=== PATIENT | male | born 1950 | race Caucasian/White ===

== ENCOUNTER 2021-07-23 08:52 | Observation (INO) ==
--- NOTE | 2021-07-23 09:23 | Emergency Department Note ---
Impression & Plan Acute retention of urine, Hypertension, Hematuria, Anemia ED Provider Note NAME: CORNELIO RAYGOZA AGE: 70 SEX: M : 1950 ARRIVES VIA: Walk-In INFORMANT: Patient ED PROVIDER(S): Brandon Chi DO CHIEF COMPLAINT: Hematuria HPI: Patient is a 70-year-old male with recent TURP performed 5 weeks ago in [facility]. He started bleeding this past Monday intermittently. He came in last night as his Edward was not emptying and he was having blood clots. This morning he has more of the same symptoms. He notes the Edward has not really been emptied since 12:00 last night. He has been taking his Eliquis. He was recently treated for UTI and prescribed antibiotics on the past visit which included cefdinir. He is still taking his apixaban. No headache or change in vision. No chest pain or shortness of breath. No nausea, vomiting, or diarrhea. No other exacerbating or remitting factors. ROS: See above HPI for pertinent positives & negatives. A total of 10 systems reviewed and were otherwise negative. PAST MEDICAL HISTORY:See Below PAST SURGICAL HISTORY:See Below FAMILY HISTORY:See Below SOCIAL HISTORY:See Below HOME MEDICATIONS:See Below ALLERGIES:See Below VITALS:See Below PHYSICAL EXAMINATION: GENERAL: Sitting up in bed, alert, well appearing, well nourished, no distress, non-toxic EYE EXAM: normal conjunctiva. OROPHARYNX: no exudate, no erythema, lips, buccal mucosa, and tongue normal and mucous membranes are moist NECK: supple, no nuchal rigidity, no adenopathy, non-tender LUNGS: Clear to auscultation. Normal chest wall mechanics HEART: no murmurs, S1 normal and S2 normal ABDOMEN: abdomen soft, non-tender, normo-active bowel sounds, no masses, no rebound or guarding. : edward in place with an empty bag UPPER EXTREMITIES: upper extremities are grossly normal. LOWER EXTREMITIES: No pitting edema. NEURO EXAM: Normal sensorium, cranial nerves II-XII grossly intact, normal speech, no gross weakness of arms, no gross weakness of legs. MEDICAL DECISION MAKING: Patient is a 70-year-old male presents the ER for a blocked off Edward catheter. He was here about 24 hours ago for the same symptoms. He has been taking his Eliquis. He had a TURP performed about 5 weeks ago. He has been unable to urinate/after the Edward since last night around 12. Edward was irrigated and started draining gross blood. Was given a gram of Rocephin secondary to the urine yesterday as he did not fill the Omnicef. Hemoglobin went from 11-9.1. With the 2 g drop in 24 hours to discuss with the hospitalist as well as Dr. Aviles from urology and agreed. Creatinine was 1.8 up from 1.5. LFTs were unremarkable. Covid was negative. Ultrasound does show Edward in the bladder was performed by myself at bedside with what appears to be a clot. After discussion with urology recommended a three-way which was ordered and continuous bladder irrigation. Discussed with the hospitalist for further evaluation. Triage Nursing notes reviewed. Limited review of prior medical records performed Vital Signs: reviewed and remarkable for HTN Differential diagnosis: Differential diagnoses includes but is not limited to gastritis, peptic ulcer disease, GERD, gallbladder disease, pancreatitis, small bowel obstruction, acute coronary syndrome, pericarditis, ischemic bowel, irritable bowel disease, irritable bowel syndrome, appendicitis, diverticulitis, malignancy, hernia, urinary tract infection, torsion, /ectopic (if female), perforation, trauma, infectious. ER treatment provided: See below Diagnostics interpreted by me: ECG: none Laboratory studies: As stated above and show below. Imaging studies: See below Consultation(s): Discussed with peds from urology as stated above Discussed with Dr. Dillon Taylor for admission Procedures: none Critical Care: None Past Med/Surg History Medical History (Updated 07/23/21 @ 13:30 by Brandon Chi DO) Benign prostatic hyperplasia Hyperlipidemia Hypertension Paroxysmal atrial fibrillation Type 2 diabetes mellitus Surgical History (Updated 07/23/21 @ 11:39 by Dillon Taylor MD) History of cholecystectomy History of transurethral resection of prostate Social History Smoking Status: Never smoker Preferred Language: Frisian Feels Safe at Home: Yes Allergies Allergies Allergy/AdvReac Type Severity Reaction Status Date / Time No Known Allergies Allergy Verified 07/23/21 10:36 Home Meds Home Medications Medication Instructions Recorded Confirmed amlodipine 5 mg tablet 5 mg PO QPM 07/22/21 07/23/21 apixaban 5 mg tablet (Eliquis) 5 mg PO BID 07/22/21 07/23/21 aspirin 81 mg tablet,delayed 81 mg PO QAM 07/22/21 07/23/21 release empagliflozin 25 mg tablet 12.5 mg PO QAM 07/22/21 07/23/21 glucose 4 gram chewable tablet 16 g PO DIRECTED PRN 07/22/21 07/23/21 lisinopril 40 mg tablet 40 mg PO QAM 07/22/21 07/23/21 metformin 1,000 mg tablet 1,000 mg PO BID 07/22/21 07/23/21 odmafwbo-txr-btxir acid 300 1 tab PO QAM 07/22/21 07/23/21 mcg-lycopene 600 mcg-lutein 300 mcg tablet (Centrum Silver Men) pioglitazone 45 mg tablet 45 mg PO QAM 07/22/21 07/23/21 pravastatin 80 mg tablet 80 mg PO QPM 07/22/21 07/23/21 sotalol 80 mg tablet 40 mg PO BID 07/22/21 07/23/21 tamsulosin 0.4 mg capsule 0.4 mg PO QPM 07/22/21 07/23/21 phenazopyridine 200 mg tablet 200 mg PO TID 07/23/21 07/23/21 Previous Rx's Medication Instructions Recorded cefdinir 300 mg capsule 300 mg PO BID #14 cap 07/22/21 Results & Data (ED) Vital Signs Vital Signs - 24 hr 07/23/21 08:57 07/23/21 09:17 07/23/21 10:32 Temperature 36.7 C Temperature Source Temporal Artery Scan Oral Pulse Rate 86 Pulse Rate [Left] Pulse Rhythm [Left] Pulse Strength [Left] Respiratory Rate 20 Respiratory Effort / Characteristics Non-Labored Spontaneous Respiratory Depth Normal Respiratory Pattern Regular Blood Pressure 144/76 H Blood Pressure [Left Arm] Blood Pressure Mean 98 Blood Pressure Mean [Left Arm] Blood Pressure Position [Left Arm] Pulse Oximetry 98 Oxygen Delivery Method Room Air Room Air Sepsis Recent Fever Within 48 Hours No Sepsis New/Unexplained Change in Mental Status No Sepsis Action Taken by Nursing No Action Required 07/23/21 11:00 Temperature Temperature Source Pulse Rate Pulse Rate [Left] 69 Pulse Rhythm [Left] Regular Pulse Strength [Left] Normal Respiratory Rate 16 Respiratory Effort / Characteristics Non-Labored Respiratory Depth Normal Respiratory Pattern Blood Pressure Blood Pressure [Left Arm] 123/75 Blood Pressure Mean Blood Pressure Mean [Left Arm] 91 Blood Pressure Position [Left Arm] Sitting Pulse Oximetry 97 Oxygen Delivery Method Room Air Sepsis Recent Fever Within 48 Hours Sepsis New/Unexplained Change in Mental Status Sepsis Action Taken by Nursing Laboratory Data Result diagrams: 07/23/21 09:20 07/23/21 09:20 Lab Results 07/23/21 07/23/21 07/23/21 Range/Units 09:20 09:20 10:30 WBC 7.54 (4.8-10.8) K/uL RBC 3.09 L (4.7-6.1) M/uL Hgb 9.1 L (14.0-18.0) g/dL Hct 28.0 L (42-52) % MCV 90.6 (80-100) fL MCH 29.4 (25-34) pg MCHC 32.5 (32-36) g/dL RDW Std Deviation 46.2 (36.4-46.3) fL RDW Coeff of Paul 14.0 (11.5-14.5) % Plt Count 178 (130-400) K/uL MPV 9.1 (7.4-10.4) fL Immature Gran % (Auto) 0.3 % Neut % (Auto) 56.6 % Lymph % (Auto) 28.1 % [place] % (Auto) 12.6 % Eos % (Auto) 2.0 % Baso % (Auto) 0.4 % Neut # (Auto) 4.27 (1.4-6.5) K/uL Lymph # (Auto) 2.12 (1.2-3.4) K/uL [place] # (Auto) 0.95 H (0.11-0.59) K/uL Eos # (Auto) 0.15 (0-0.5) K/uL Baso # (Auto) 0.03 (0-0.2) K/uL Immature Gran # (Auto) 0.02 (0.00-0.02) K/uL Sodium 138 (136-145) mmol/L Potassium 3.9 (3.5-5.1) mmol/L Chloride 108 H (98-107) mmol/L Carbon Dioxide 26 (21-32) mmol/L Anion Gap 4.0 (3-11) BUN 40 H (7-18) mg/dl Creatinine 1.89 H D (0.6-1.4) mg/dl Est Cr Clr Drug Dosing 39.9 ml/min Est GFR ( Amer) 40.2 ml/min Est GFR (Non-Af Amer) 34.7 ml/min BUN/Creatinine Ratio 21.0 H (10-20) Glucose 165 H (70-99) mg/dl Calcium 9.2 (8.5-10.1) mg/dl Total Bilirubin 0.6 (0.2-1) mg/dl AST 11 L (15-37) U/L ALT 19 (12-78) U/L Alkaline Phosphatase 62 (45-117) U/L Total Protein 7.5 (6.4-8.2) gm/dl Albumin 3.2 L (3.4-5.0) gm/dl Globulin 4.3 H (2.5-4.0) gm/dl Albumin/Globulin Ratio 0.7 L (0.9-2) SARS-CoV-2, RNA, NAAT NEGATIVE (NEGATIVE) Administered Medications Discontinued Medications Ceftriaxone Sodium (Rocephin) 1,000 mg in 50 mls @ 100 mls/hr IV NOW STA Stop: 07/23/21 10:54 Last Admin: 07/23/21 11:05 Dose: 100 mls/hr Documented by: [id number] Discharge Plan Visit Data Chief Complaint: Catheter Replacement Stated Complaint: BLOCKED CATHERTER ED Provider: Brandon Chi Discharge Problem: Acute retention of urine, Hypertension, Hematuria, Anemia Discharge Problem: Hypertension Qualifiers: Hypertension type: unspecified Qualified Code(s): I10 - Essential (primary) hypertension Hematuria Qualifiers: Hematuria type: unspecified type Qualified Code(s): R31.9 - Hematuria, unspecified Anemia Qualifiers: Anemia type: unspecified type Qualified Code(s): D64.9 - Anemia, unspecified
[2021-07-23 09:32] LABS: Basophils # (auto) 0.03 K/uL (0-0.2); Basophils % (auto) 0.4 %; Eosinophils # (auto) 0.15 K/uL (0-0.5); Hemoglobin 9.1 g/dL (14.0-18.0); Immature Granulocytes # (auto) 0.02 K/uL (0.00-0.02); Immature Granulocytes % (auto) 0.3 %; Lymphocytes # (auto) 2.12 K/uL (1.2-3.4); Lymphocytes % (auto) 28.1 %; Mean Corpuscular Hemoglobin 29.4 pg (25-34); Mean Corpuscular Hgb Conc 32.5 g/dL (32-36); Mean Corpuscular Volume 90.6 fL (80-100); Mean Platelet Volume 9.1 fL (7.4-10.4); Monocytes # (auto) 0.95 K/uL (0.11-0.59); Monocytes % (auto) 12.6 %; Neutrophils # (auto) 4.27 K/uL (1.4-6.5); Neutrophils % (auto) 56.6 %; Platelet Count 178 K/uL (130-400); RDW Standard Deviation 46.2 fL (36.4-46.3); Red Blood Count 3.09 M/uL (4.7-6.1); White Blood Count 7.54 K/uL (4.8-10.8)
[2021-07-23] MEDS ORDERED: cefTRIAXone SODIUM 1,000 MG/50 ML BAG IV STA (10:25)
--- NOTE | 2021-07-23 10:37 | History & Physical Report ---
Date of Service July 23, 2021 Assessment & Plan (1) Hematuria: Plan: Agree with continuing ceftriaxone for antibiotic coverage. No bacteria seen on UA from yesterday however nitrites positive and higher risk on Jardiance and recent urological procedure. Hold aspirin and Eliquis - no urgent need to restart either of these. No indication to go back on aspirin regardless. Consult urology (2) Acute retention of urine: Plan: Catheter inserted for CBI per urology recommendations (3) Paroxysmal atrial fibrillation: Plan: Holding Eliquis as above. Currently in NSR. No known a. fib for 6 years. Continue sotalol (4) Benign prostatic hyperplasia: Plan: Continue tamsulosin 0.4mg HS Catheter management per urology recommendations (5) Type 2 diabetes mellitus: Plan: Unknown HbA1C Hold his usual metformin and pioglitazone. Recommend discontinuing Jardiance on discharge Novolog: Goal BSG Range: Low 110 mg/dL, High 140 mg/dL Correction Factor: 45 mg/dL/unit Carbohydrate ratio = 15 g/unit BSGs ACHS if eating, q6h if npo (6) Hyperlipidemia: Plan: Continue pravastatin 80mg PO daily (7) Hypertension: Plan: Continue lisinopril and amlodipine with hold parameters Plan: VTE Prophylaxis - chemical contraindicated, low risk Diet - T2DM, heart healthy Disposition - observation status to med/surg Admission and Anticipated Discharge Date Admission Date: July 23, 2021 History of Present Illness Chief Complaint: Gross hematuria Primary Care Provider: NO PCP Eric Sullivan is a 70 year old male who presents to the ER with gross hematuria. He has a recent history of TURP (for benign prostatic hypertrophy) on Jun 17, 2021. Edward catheter was removed a day after the procedure and he had mild bleeding intermittently for 1.5 weeks but no clots. He was started on Jardiance 1.5 weeks ago. He is here visiting family in the area for the holidays. Hematuria recurred on this past Monday. Much worse on Monday with intermittent urinary retention and clots. No fever, chills, dysuria, abdominal pain, flank pain, nausea or vomiting, change in bowels, melena or bright red blood in stool. He was seen in the ER for this yesterday and edward catheter was inserted and he was started on antibiotics. However due to clots causing urine retention in the catheter he returns today. He was kept on aspirin and Eliquis however he didn't take his Eliquis this morning. He has continued to take Eliquis and aspirin throughout. However denies any prior heart attack of stroke. Paroxysmal atrial fibrillation - picked up incidentally at cardiology appointment 6 years ago. Treated with sotalol and cardioversion. On Eliquis since then (off 2 days prior and started 2 days later). In the ER hemoglobin decreased from 11.0 to 9.1. He was referred to medicine for admission and ongoing management of hematuria. Allergies Allergy/AdvReac Type Severity Reaction Status Date / Time No Known Allergies Allergy Verified 07/23/21 10:36 Home Medications Medication Instructions Recorded Confirmed Type amlodipine 5 mg tablet 5 mg PO QPM 07/22/21 07/23/21 History apixaban 5 mg tablet (Eliquis) 5 mg PO BID 07/22/21 07/23/21 History aspirin 81 mg tablet,delayed 81 mg PO QAM 07/22/21 07/23/21 History release cefdinir 300 mg capsule 300 mg PO BID #14 cap 07/22/21 07/23/21 Rx empagliflozin 25 mg tablet 12.5 mg PO QAM 07/22/21 07/23/21 History glucose 4 gram chewable tablet 16 g PO DIRECTED PRN 07/22/21 07/23/21 History lisinopril 40 mg tablet 40 mg PO QAM 07/22/21 07/23/21 History metformin 1,000 mg tablet 1,000 mg PO BID 07/22/21 07/23/21 History sqkhpqhi-dfb-nbisd acid 300 1 tab PO QAM 07/22/21 07/23/21 History mcg-lycopene 600 mcg-lutein [facility]cg tablet [facility]) pioglitazone 45 mg tablet 45 mg PO QAM 07/22/21 07/23/21 History pravastatin 80 mg tablet 80 mg PO QPM 07/22/21 07/23/21 History sotalol 80 mg tablet 40 mg PO BID 07/22/21 07/23/21 History tamsulosin 0.4 mg capsule 0.4 mg PO QPM 07/22/21 07/23/21 History phenazopyridine 200 mg tablet 200 mg PO TID 07/23/21 07/23/21 History Past Med/Surg History Medical History Benign prostatic hyperplasia Hyperlipidemia Hypertension Paroxysmal atrial fibrillation Type 2 diabetes mellitus Surgical History History of cholecystectomy History of transurethral resection of prostate Social History Smoking Status: Never smoker Hx Alcohol Use: No Hx Substance Use: No Preferred Language: Kyrgyz Communication Ability: Effective Shock Absorption Floor Layer Required: No Beliefs That Will Affect Care: None Current Living Situation: Spouse Feels Safe at Home: Yes Assistive Devices: Glasses Review of Systems Review of Systems: All systems reviewed & are unremarkable except as noted in HPI & below Physical Exam Constitutional: WD/WN, vitals as above Eyes: + anicteric sclerae; normal pupil size ENMT: external ear and nose normal, oropharynx normal Respiratory: normal respiratory effort, lungs clear to auscultation Cardiovascular: RRR, no murmur, no edema Gastrointestinal (Abdomen): normal bowel sounds, soft, nontender, no hepatosplenomegaly Musculoskeletal: no cyanosis or clubbing, extremities motor strength 5/5 Skin: no rashes, warm and dry Neurologic: moves all extremities and awake; not confused Psychiatric: A+Ox3, euthymic affect Genitourinary: no CVA tenderness Edward catheter draining ping blood Results & Data Results & Data ([facility]) Vital Signs (Past 12 Hours) Vital Signs Temp Pulse Resp BP Pulse Ox 07/23/21 08:57 36.7 C 86 20 144/76 H 98 Laboratory Results Abnormal lab results 07/23/21 07/23/21 07/23/21 Range/Units 09:20 09:20 17:22 RBC 3.09 L (4.7-6.1) M/uL Hgb 9.1 L (14.0-18.0) g/dL Hct 28.0 L (42-52) % [place] # (Auto) 0.95 H (0.11-0.59) K/uL Chloride 108 H (98-107) mmol/L BUN 40 H (7-18) mg/dl Creatinine 1.89 H D (0.6-1.4) mg/dl BUN/Creatinine Ratio 21.0 H (10-20) Glucose 165 H (70-99) mg/dl POC Glucose 137 H (70-99) mg/dl AST 11 L (15-37) U/L Albumin 3.2 L (3.4-5.0) gm/dl Globulin 4.3 H (2.5-4.0) gm/dl Albumin/Globulin Ratio 0.7 L (0.9-2) 07/23/21 07/23/21 Range/Units 17:39 20:47 RBC (4.7-6.1) M/uL Hgb 9.3 L (14.0-18.0) g/dL Hct 28.0 L (42-52) % [place] # (Auto) (0.11-0.59) K/uL Chloride (98-107) mmol/L BUN (7-18) mg/dl Creatinine (0.6-1.4) mg/dl BUN/Creatinine Ratio (10-20) Glucose (70-99) mg/dl POC Glucose 104 H (70-99) mg/dl AST (15-37) U/L Albumin (3.4-5.0) gm/dl Globulin (2.5-4.0) gm/dl Albumin/Globulin Ratio (0.9-2) Medications Administered ER Medications Given: Ceftriaxone 1000mg IV daily Code Status & VTE Plan Code Status Full VTE Prophylaxis Plan VTE Prophylaxis will be ordered: No PG Care Time/CCT Total # of Minutes Spent Total Time Spent with Patient: Total time spent is greater than 50% in coordination of care (as documented) at patient's floor/unit and/or counseling patient: Coding Level of Care Code INT OBSERVATION CARE 70M LVL 3 Diagnoses Acute retention of urine R33.8 Hematuria R31.0 Hematuria type: gross Paroxysmal atrial fibrillation I48.0 Benign prostatic hyperplasia N40.0 Type 2 diabetes mellitus E11.9 Hyperlipidemia E78.5 Hypertension I10 (1) Hematuria Hematuria type: gross Qualified Code(s): R31.0 - Gross hematuria
[2021-07-23 10:39] LABS: Albumin Level 3.2 gm/dl (3.4-5.0); Calcium 9.2 mg/dl (8.5-10.1); Creatinine Clr Calc Pharmacy 39.9 ml/min; Est GFR (African American) 40.2 ml/min; Est GFR (Non-African American) 34.7 ml/min; Potassium 3.9 mmol/L (3.5-5.1)
[2021-07-23 10:42] LABS: Albumin Globulin Ratio 0.7 (0.9-2); Bilirubin,Total 0.6 mg/dl (0.2-1); Globulin 4.3 gm/dl (2.5-4.0); Total Protein 7.5 gm/dl (6.4-8.2)
--- NOTE | 2021-07-23 14:09 | Urology Consultation ---
Date of Consultation July 23, 2021 Assessment & Plan (1) Anemia: (2) Hematuria: Hematuria is likely multifactorial in nature. His recent TURP is left his prostate with a raw surface, which could bleed with straining or heavy lifting. His anticoagulation with Eliquis puts him at higher risk. There is a chance that he has a superimposed urinary tract infection, and it would be reasonable to treat empirically. Bleeding appears to be resolved at this point. (3) Acute retention of urine: 70-year-old male with urinary retention related to clots and hematuria. At this point his bladder is draining well on continuous bladder irrigation. W hen this is slowed, there is no evidence of active bleeding, as the urine stays clear. I suspect his bleeding all happened a couple days ago, and he is dealing with sequelae of clots in the bladder which have been largely flushed out. I suspect his anemia is partially related to the recent bleed, but for the most part is dilutional. He remains asymptomatic and I do not think he requires any intervention or transfusion at this point. I suspect his acute kidney injury is related to lower urinary tract obstruction. As his bladder continues to drain with the current catheter, this should impr ove. Recommendations: Continue CBI overnight, wean as tolerated, okay to perform hand irrigation if catheter because clotted off. Okay to have diet Continue antibiotics, would recommend 5-day course -can tailor if urine culture shows any growth. Urology will follow along History of Present Illness Attending Physician: Dillon Taylor MD History of Present Illness This is a 70 yo male who presented to the ED on 07/23/2021 with urinary retention. He had undergone a TURP at an outside urology office approximately 5-6 weeks prior to presentation. The procedure went without any problems and he was discharged home without a catheter. He had minimal blood in the urine afterwards. Earlier this week he reports having some blood in the urine, but was still voiding well. There was no obvious inciting factor. He denies heavy lifting or straining. He is on Eliquis for A.fib. The urine got more bloody on 07/20, and he was having some clots. He was able to pass some of these with straining, but had overall worsening urinary retention. This eventually prompted him to present to the emergency department. At that time a Ralph catheter was placed, irrigation was performed for some clots and he was sent home. His catheter again became clogged and he returned to the ED on 07/23/2021. Bedside ultrasound demonstrated some intraluminal clots within the bladder. Hand irrigation was again performed, but the urine was still red. His catheter was exchanged to a 22 Thai three-way and continuous bladder irrigation was initiated. Urology was consulted for further evaluation. Additionally, he was noted on lab work to have dropped his hemoglobin by 2 points, and was admitted to the hospitalist for further monitoring. At the bedside today, he denies any significant pain. He reports the current catheter is draining well. He denies any lightheadedness, nausea or vomiting. Labs reviewed: CBC with hemoglobin from 11.0 --> 9.1 (07/22-07/23) no leukocytosis BMP (07/23/2021): Notable for creatinine of 1.89, up from previous value 1.52. Allergies Allergy/AdvReac Type Severity Reaction Status Date / Time No Known Allergies Allergy Verified 07/23/21 10:36 Home Medications Medication Instructions Recorded Confirmed Type amlodipine 5 mg tablet 5 mg PO QPM 07/22/21 07/23/21 History apixaban 5 mg tablet (Eliquis) 5 mg PO BID 07/22/21 07/23/21 History aspirin 81 mg tablet,delayed 81 mg PO QAM 07/22/21 07/23/21 History release cefdinir 300 mg capsule 300 mg PO BID #14 cap 07/22/21 07/23/21 Rx empagliflozin 25 mg tablet 12.5 mg PO QAM 07/22/21 07/23/21 History glucose 4 gram chewable tablet 16 g PO DIRECTED PRN 07/22/21 07/23/21 History lisinopril 40 mg tablet 40 mg PO QAM 07/22/21 07/23/21 History metformin 1,000 mg tablet 1,000 mg PO BID 07/22/21 07/23/21 History jaxiiysn-gre-tvtjc acid 300 1 tab PO QAM 07/22/21 07/23/21 History mcg-lycopene 600 mcg-lutein 300 mcg tablet (Centrum Silver Men) pioglitazone 45 mg tablet 45 mg PO QAM 07/22/21 07/23/21 History pravastatin 80 mg tablet 80 mg PO QPM 07/22/21 07/23/21 History sotalol 80 mg tablet 40 mg PO BID 07/22/21 07/23/21 History tamsulosin 0.4 mg capsule 0.4 mg PO QPM 07/22/21 07/23/21 History phenazopyridine 200 mg tablet 200 mg PO TID 07/23/21 07/23/21 History Patient History Medical History Benign prostatic hyperplasia Hyperlipidemia Hypertension Paroxysmal atrial fibrillation Type 2 diabetes mellitus Surgical History History of cholecystectomy History of transurethral resection of prostate Social History Smoking Status: Never smoker Preferred Language: Lithuanian Feels Safe at Home: Yes Review of Systems Constitutional: no fever and no chills Eyes: no worsening vision Ear, Nose, Mouth, Throat: no tinnitus Respiratory: no cough and no dyspnea Cardiovascular: no chest pain and no palpitations Gastrointestinal: + abdominal pain (With bladder distention) Genitourinary: + as per Subjective / HPI Musculoskeletal: no joint pain and no myalgia Integumentary: no rash and no lesions Neurologic: no localized weakness, no numbness and no paresthesia Endocrine: no fatigue Hematologic / Lymphatic: + easy bleeding (On Eliquis) Physical Exam Constitutional: well developed and well nourished; no acute distress Eyes: + anicteric sclerae; pupils not irregular Respiratory: normal respiratory effort; no respiratory distress, does not use accessory muscles and no cough Cardiovascular: well perfused Gastrointestinal (Abdomen): Inspection/Auscultation: abdomen normal to inspection; abdomen not distended Musculoskeletal: Extremities: extremities normal to inspection Skin: normal turgor; no rashes and no lesions Neurologic: moves all extremities and awake Psychiatric: Orientation: alert and oriented x 3 Genitourinary: Three-way Ralph catheter in place, draining clear pyridium- yellow urine on slow drip CBI. Results & Data ([facility]) Vital Signs (Past 12 Hours) Vital Signs Temp Pulse Pulse Resp BP BP Pulse Ox 07/23/21 11:00 69 16 123/75 97 07/23/21 08:57 36.7 C 86 20 144/76 H 98 PG Care Time/CCT Total # of Minutes Spent Total Time Spent with Patient: Total time spent is greater than 50% in coordination of care (as documented) at patient's floor/unit and/or counseling patient: Coding Level of Care Code 94769 Inpt Consult Level 4 Diagnoses Anemia D64.9 Anemia type: unspecified type Hematuria R31.9 Hematuria type: unspecified type Acute retention of urine R33.8 (1) Anemia Anemia type: unspecified type Qualified Code(s): D64.9 - Anemia, unspecified (2) Hematuria Hematuria type: unspecified type Qualified Code(s): R31.9 - Hematuria, unspecified
[2021-07-23] MEDS ORDERED: GLUCOSE 10 TABS/TUBE PO PRN (14:44)
[2021-07-23] MEDS ORDERED: GLUCAGON FOR INJ 1 MG VIAL SQ PRN (14:44)
[2021-07-23] MEDS ORDERED: GLUCOSE 40% GEL 15 GM TUBE PO PRN (14:44)
[2021-07-23] MEDS ORDERED: ONDANSETRON INJ 2 MG/ML 2 ML VIAL IV PRN (14:44)
[2021-07-23] MEDS ORDERED: POLYETHYLENE (MIRALAX) 17 GM PACK PO PRN (14:44)
[2021-07-23] MEDS ORDERED: DEXTROSE 50% 50 ML SYRINGE IV PRN (14:44)
[2021-07-23] MEDS ORDERED: ACETAMINOPHEN 325 MG TAB PO PRN (14:44)
[2021-07-23] MEDS ORDERED: CARBOHYDRATES FOR HYPOGLYCEMIA PO PRN (14:44)
[2021-07-23 17:48] LABS: Hemoglobin 9.3 g/dL (14.0-18.0)
[2021-07-23] MEDS: INSULIN ASPART 100 UNITS/ML 3 ML PEN SC SCH ×2 (18:35→21:23)
[2021-07-23] MEDS ORDERED: PRAVASTATIN SOD 40 MG TAB PO SCH (21:00)
[2021-07-23] MEDS ORDERED: TAMSULOSIN HCL 0.4 MG CAP PO SCH (21:00)
[2021-07-23] MEDS: SOTALOL HCL 80 MG TAB PO SCH (22:21)
[2021-07-24 07:40] LABS: Basophils # (auto) 0.03 K/uL (0-0.2); Basophils % (auto) 0.5 %; Eosinophils # (auto) 0.17 K/uL (0-0.5); Eosinophils % (auto) 2.9 %; Hematocrit (blood only) 27.7 % (42-52); Hemoglobin 9.1 g/dL (14.0-18.0); Immature Granulocytes # (auto) 0.01 K/uL (0.00-0.02); Immature Granulocytes % (auto) 0.2 %; Lymphocytes # (auto) 1.77 K/uL (1.2-3.4); Lymphocytes % (auto) 30.7 %; Mean Corpuscular Hemoglobin 29.7 pg (25-34); Mean Corpuscular Hgb Conc 32.9 g/dL (32-36); Mean Corpuscular Volume 90.5 fL (80-100); Mean Platelet Volume 9.5 fL (7.4-10.4); Monocytes # (auto) 0.57 K/uL (0.11-0.59); Monocytes % (auto) 9.9 %; Neutrophils # (auto) 3.22 K/uL (1.4-6.5); Neutrophils % (auto) 55.8 %; Platelet Count 173 K/uL (130-400); RDW Coefficient of Variation 14.3 % (11.5-14.5); RDW Standard Deviation 47.3 fL (36.4-46.3); Red Blood Count 3.06 M/uL (4.7-6.1); White Blood Count 5.77 K/uL (4.8-10.8)
[2021-07-24 08:05] LABS: BUN Creatinine Ratio 16.9 (10-20); Calcium 8.7 mg/dl (8.5-10.1); Creatinine Clr Calc Pharmacy 53.3 ml/min; Est GFR (African American) 58.3 ml/min; Est GFR (Non-African American) 50.3 ml/min; Potassium 3.8 mmol/L (3.5-5.1)
[2021-07-24] MEDS: SOTALOL HCL 80 MG TAB PO SCH (08:46)
[2021-07-24] MEDS: INSULIN ASPART 100 UNITS/ML 3 ML PEN SC SCH ×2 (08:48→13:01)
[2021-07-24] MEDS ORDERED: lisinopril 40 MG TAB PO SCH (09:00)
[2021-07-24] MEDS ORDERED: MULTIVITAMIN TAB PO SCH (09:00)
--- NOTE | 2021-07-24 10:05 | Urology Progress Note ---
Date of Service July 24, 2021 Assessment & Plan (1) Anemia: Plan: Overall it appears that he is not having any active bleeding. Hemoglobin remains stable. (2) Hematuria: Plan: Hematuria appears resolved at this point. No issues with CBI overnight. We will perform a clamping trial, as long as the urine remains clear for 20 to 30 minutes, we can perform a voiding trial. Assuming he is able to urinate with the catheter removed, he should be ready for discharge. Etiology of hematuria remains unclear, likely from recent surgery exacerbated with Eliquis. There is a possibility of urinary tract infection, therefore I do recommend a couple days of antibiotics upon discharge. (3) AZEEM (acute kidney injury): Plan: AZEEM has improved, now that he is emptying his bladder. There may have been an obstructive component, or potentially a prerenal component. Would recommend that he remain well-hydrated and ensure his bladder keeps draining. Plan: Ralph catheter clamped, okay to perform voiding trial if urine remains clear for 30 minutes. If he is able to void, would recommend discharge home. Would recommend a course of antibiotics for possible UTI (5 days Bactrim) We will provide him follow-up information for our office, but he will plan to follow-up with his new urologist in [facility]. Admission and Anticipated Discharge Date Admission Date: July 23, 2021 Subjective Admitted overnight on CBI. He has done well overall. He denies any bladder pain and reports the catheter is draining well. He did not require hand irrigation overnight. The urine has not been bloody. He is still tolerating a diet, and has been ambulating a bit. Review of Systems Review of Systems: No fevers or chills Genitourinary: + as per Subjective / HPI (No catheter pain, no bladder pain) Physical Exam Physical Exam: Sitting comfortably in bed, NAD Genitourinary: Ralph catheter in place draining clear yellow urine on slow drip CBI. Results & Data ([facility]) Vital Signs (Past 12 Hours) Vital Signs Temp Pulse Resp BP Pulse Ox 07/24/21 07:22 36.7 C 58 L 16 120/63 98 07/23/21 23:56 36.6 C 61 16 123/68 98 Laboratory Results Hemoglobin 9.1 this morning, unchanged from last night. Creatinine 1.39, improved from his value on presentation. PG Care Time/CCT Total # of Minutes Spent Total Time Spent with Patient: Total time spent is greater than 50% in coordination of care (as documented) at patient's floor/unit and/or counseling patient: Coding Level of Care Code 45230 Subseq Hosp Care Lvl 1 Diagnoses Anemia D64.9 Anemia type: unspecified type Hematuria R31.9 Hematuria type: unspecified type AZEEM (acute kidney injury) N17.9 (1) Anemia Anemia type: unspecified type Qualified Code(s): D64.9 - Anemia, unspecified (2) Hematuria Hematuria type: unspecified type Qualified Code(s): R31.9 - Hematuria, unspecified
[2021-07-24] MEDS ORDERED: cefTRIAXone SODIUM 1,000 MG in DEXTROSE 5% 50 ML IV SCH (11:00)
--- NOTE | 2021-07-24 14:35 | Discharge Summary ---
Date of Service July 24, 2021 Admission HPI Per Admitting Provider Eric Sullivan is a 70 year old male who presents to the ER with gross hematuria. He has a recent history of TURP (for benign prostatic hypertrophy) on Jun 17, 2021. Edward catheter was removed a day after the procedure and he had mild bleeding intermittently for 1.5 weeks but no clots. He was started on Jardiance 1.5 weeks ago. He is here visiting family in the area for the holidays. Hematuria recurred on this past Monday. Much worse on Monday with intermittent urinary retention and clots. No fever, chills, dysuria, abdominal pain, flank pain, nausea or vomiting, change in bowels, melena or bright red blood in stool. He was seen in the ER for this yesterday and edward catheter was inserted and he was started on antibiotics. However due to clots causing urine retention in the catheter he returns today. He was kept on aspirin and Eliquis however he didn't take his Eliquis this morning. He has continued to take Eliquis and aspirin throughout. However denies any prior heart attack of stroke. Paroxysmal atrial fibrillation - picked up incidentally at cardiology appointment 6 years ago. Treated with sotalol and cardioversion. On Eliquis since then (off 2 days prior and started 2 days later). In the ER hemoglobin decreased from 11.0 to 9.1. He was referred to medicine for admission and ongoing management of hematuria. Principal Diagnosis Hematuria Discharge Exam PHYSICAL EXAM General Appearance: WDWN in NAD who is A&O x 3 HEENT: Head is normocephalic/atraumatic; Hearing grossly intact; Mucous me mbranes moist Neck: Supple; Trachea midline; Neg JVD Heart: RRR with no M/G/R Lungs: CTA in all lung lang bilaterally; Respirations unlabored; Neg accessory muscle use Abdomen: Soft, non-tender, non-distended; Positive BS x 4 quadrants Uro: Voided x 3 post cath; initial void with small soft clots with last void completely clear without no clots/sediment Extremities: Neg cyanosis or edema Neurological: Speech clear; Gross motor/sensory function intact; Neg focal neurologic deficits Psychiatric: Appropriate mood/affect Skin: Normal Color; Warm/Dry Discharge Data Allergies Allergy/AdvReac Type Severity Reaction Status Date / Time No Known Allergies Allergy Verified 07/23/21 10:36 Consultations 07/23/21 10:15 ED Decision to Admit Stat 07/23/21 10:37 Consult Urology Routine Hospital Course (1) Hematuria: - Suspect related to TURP approx. 1 month ago and use of ASA/Eliquis - Treated with Ceftriaxone while hospitalized but converted to Bactrim x 5 days per Urology; No growth noted on UCx -- Patient did recently start Jardiance which he is going to talk to his [facility] to see if this should be continued vs alternative but plans to hold for the time being - Hold ASA; Recommend holding Eliquis x 3 days but to call Investor Relations Analyst on Monday for recommendations -- Has had a remote history of A Fib and had cardioversion - examines in NSR so risk would be low with hold Eliquis - [facility] Urology followed - discussed plan of care with Dr. Aviles on day of discharge - plan for patient to follow with home Urologist (2) Acute retention of urine: Catheter inserted for CBI per urology recommendations - did have clamp trial and removal of edward -- Voiding independently without no further hematuria/clots (3) Paroxysmal atrial fibrillation: Holding Eliquis as above. Currently in NSR. No known a. fib for 6 years. Continue sotalol (4) Benign prostatic hyperplasia: Continue tamsulosin 0.4mg HS (5) Type 2 diabetes mellitus: Unknown HbA1C - Continue home regimen - hold Jardiance as discussed above (6) Hyperlipidemia: Continue pravastatin 80mg PO daily (7) Hypertension: Continue lisinopril and amlodipine - Currently lives in [place], [place] - Plans to F/U with providers back home Total Time Total Time Spent Total Time Spent (In Minutes): Spent greater than 30 minutes preparing patient for discharge. This includes discussion with patient/family, assessment, intervention, medication reconciliation, and coordination of care. Discharge Plan Discharge Items Patient Disposition: Home - Self-Care Reason For Visit: GROSS HEMATURIA, ANEMIA, URINARY RETENTION Discharge Diagnosis: Hematuria (Blood in Urine) Activity: Per Instructions section Lifting: Gradually increase as tolerated Bathing: No limitations Non-emergency contact: Primary Care Provider and Urologist Call non-emergency contact if: you have any medication questions, your symptoms worsen and you have a fever Follow-up/Referrals: PCP,NO [Primary Care Provider] - Diet: Carb Consistent or DM2 and Heart Healthy Addtl Attending Provider Instructions: Hematuria - Blood in Urine: - It is not certain what caused the blood in the urine again. Unfortunately, aspirin and Eliquis can place you at risk for bleeding given you did have a surgery on your prostate and that tissue can be a bit friable when on blood thinners. Recommend to make sure to avoid constipation (straining to have bowel movement) or heavy lifting as this can exacerbate things. You can gradually increase lifting as long as no bleeding. - Would recommend stopping aspirin right now. Could discuss with your heart doctor about resuming this but no indication for use right now. Would also hold Eliquis for three days and talk with your lumber sorter about this as well. Holding for a couple days will allow any irritation from the catheter to have time to resolve. You can resume sooner if your lumber sorter recommends it. - Currently your urine is completely clear. You may pass small little clots periodically but hopefully will remain clear. If your symptoms worsen or you feel you cannot void. The urologist gave the office number below. Diabetes: - Recommend to continue your home regimen. - Jardiance can increase your risk for urinary tract infections especially since you just recently had a urinary procedure. - It may be worth talking to your doctor about whether this medication should be resumed or an alternative decided on. Once the prostate fully heals the Jardiance may be fine to resume - Thankfully, your urine culture does not have any bacteria on it however would recommend to treat for 5 days to make sure with the catheter no new bacteria was introduced - The Urologist here recommends Bactrim for 5 days. This is different then the medication sent from the ER the other day so a new prescription will be sent. You do not need to take the previous antibiotic as the Bactrim will cover normal urinary bacterium Addtl Scrap Preparer Provider Instructions: You were seen by urology while in the hospital. Plan to follow-up with your home urologist. If you have any urologic concerns while in [place], you can call our office at [phone]. Pending Studies at Discharge: No Stand-Alone Forms: [employer], Smoking Cessation Medications and DC Order Prescriptions: New sulfamethoxazole-trimethoprim [Bactrim DS] 800-160 mg tablet 1 tab PO BID 5 Days Qty: 10 RF: 0 Continued phenazopyridine 200 mg Tablet 200 mg PO TID RF: 0 sotalol 80 mg Tablet 40 mg PO BID RF: 0 pioglitazone 45 mg Tablet 45 mg PO QAM RF: 0 amlodipine 5 mg Tablet 5 mg PO QPM RF: 0 pravastatin 80 mg Tablet 80 mg PO QPM RF: 0 tamsulosin 0.4 mg Capsule 0.4 mg PO QPM RF: 0 metformin 1,000 mg Tablet 1,000 mg PO BID RF: 0 glucose 4 gram Tablet,Chewable 16 g PO DIRECTED PRN (Reason: LOW BLOOD SUGARS) RF: 0 lisinopril 40 mg Tablet 40 mg PO QAM RF: 0 Centrum Silver Men 300-600-300 mcg Tablet 1 tab PO QAM RF: 0 Eliquis 5 mg Tablet 5 mg PO BID RF: 0 Discontinued aspirin 81 mg Tablet,Delayed Release (Dr/Ec) 81 mg PO QAM RF: 0 empagliflozin 25 mg Tablet 12.5 mg PO QAM RF: 0 cefdinir 300 mg capsule 300 mg PO BID Qty: 14 RF: 0 Discharge Orders: Discharge Order (Routine); Ordered 07/24/21 Ordered By: Claudia Latham/Other Patient Handouts: ED Urinary Retention, Male Admission Data Admit Date/Time: 07/23/21 11:21 Attending Provider: Nimesh Hearn Admit Provider: Dillon Taylor Primary Care Provider: PCP,NO Other Providers: Dillon Taylor ; Jose Manuel Aviles Other Interventions: Discharge Summary Assessment (RN) Last Done: 07/24/21 14:56 Supervising Physician Co-Signing Physician Notes Attending note: patient seen and examined with Claudia Carranza PA-C. I agree with her discharge summary. I personally reviewed the labs and imaging findings. urine is clear, he has voided several times, no fever, eating well, no nausea he plans to follow up with his urologist in [place] - Gross hematuria, urinary retention treated with bladder irrigation, urine is now clear edward catheter pulled, voiding clear urine, no issues send on Bactrim for 5 days follow up with urologist in [place] Coding Level of Care Code D/C DAY MANAGEMENT >30 MINS Diagnoses Hematuria R31.9 Hematuria type: unspecified type Acute retention of urine R33.8 Paroxysmal atrial fibrillation I48.0 Benign prostatic hyperplasia N40.0 Type 2 diabetes mellitus E11.9 Hyperlipidemia E78.5 Hypertension I10 Hypertension type: unspecified
== END 2021-07-24 15:55 | disposition home or self-care (01) ==
LOC: ED 08:52 → EDINP 08:52 → SUATTDRO 11:21 → 3N 14:45